=== PATIENT | female | born 1975 ===

== ENCOUNTER 2017-03-03 23:15 | Emergency (ER) | payer SELFPAY ==
[2017-03-03 23:23] VITALS: BP 129/71; PULSE 70; RESP 16; TEMP 98.9; O2SAT 100
--- NOTE | 2017-03-03 23:48 | ED PDOC ---
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 denies: Nausea, Vomiting, Diarrhea, Loss Of Appetite Exacerbating Factors: None Alleviating Factors: None Additional Complaint(s): 42yo female c/o suprapubic pain/pressure ongoing for 3-4 days, denies urinary frequency or dysuria. Denies fever, vaginal discharge or bleeding. States missed her period this month. Past Medical History Reviewed: Historical Data, Nursing Documentation, Vital Signs Vital Signs: Last Vital Signs Temp 98.9 F 03/03/17 23:21 Pulse 70 03/03/17 23:21 Resp 16 03/03/17 23:21 BP 129/71 03/03/17 23:21 Pulse Ox 100 03/03/17 23:48 - Medical History PMH: No Chronic Diseases - Surgical History Surgical History: No Surg Hx - Family History Family History: States: Unknown Family Hx - Living Arrangements Living Arrangements: With Family - Social History Current smoker - smoking cessation education provided: No Alcohol: None - Allergies Allergies/Adverse Reactions: Allergies Allergy/AdvReac Type Severity Reaction Status Date / Time No Known Allergies Allergy Verified 03/03/17 23:28 Review of Systems ROS Statement: Except As Marked, All Systems Reviewed And Found Negative Constitutional: Negative for: Fever, Chills Cardiovascular: Negative for: Chest Pain, Palpitations Respiratory: Negative for: Cough, Shortness of Breath Gastrointestinal: Positive for: Abdominal Pain. Negative for: Nausea, Vomiting Genitourinary Female: Positive for: Pelvic Pain. Negative for: Dysuria, Frequency, Vaginal Discharge, Vaginal Bleeding Musculoskeletal: Positive for: Back Pain. Negative for: Neck Pain Skin: Negative for: Rash Neurological: Negative for: Numbness, Incoordination Psych: Negative for: Anxiety Physical Exam - Reviewed Nursing Documentation Reviewed: Yes Vital Signs Reviewed: Yes - Physical Exam Appears: Positive for: Well, Non-toxic, No Acute Distress Head Exam: Positive for: ATRAUMATIC, NORMAL INSPECTION, NORMOCEPHALIC Skin: Positive for: Normal Color, Warm, DRY Eye Exam: Positive for: EOMI, Normal appearance, PERRL ENT: Positive for: Normal ENT Inspection Neck: Positive for: Painless ROM Cardiovascular/Chest: Negative for: Tachycardia Respiratory: Negative for: Respiratory Distress Gastrointestinal/Abdominal: Positive for: Bowel Sounds, Soft, Tenderness (mild suprapubic tenderness). 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 Negative for: Motor/Sensory Deficits - ECG O2 Sat by Pulse Oximetry: 100 Medical Decision Making Medical Decision Making: check Upreg Disposition - Clinical Impression Clinical Impression: Suprapubic pain - Patient ED Disposition Is Patient to be Admitted: Transfer of Care - Disposition Disposition: Transfer of Care Disposition Time: 23:54 Condition: STABLE Forms: [facility] (Jamaican) Patient Signed Over To: Tad Navarrete Handoff Comments: pending labs, poss need for US
[2017-03-04 00:26] LABS: ALB/GLOB RATIO 1.4 (1.0-2.1); ALKALINE PHOSPHATASE 53 U/L (38-126); ALT/SGPT 38 U/L (9-52); AST/SGOT 23 U/L (14-36); BASO # 0.1 K/uL (0.0-0.2); BASO % 0.8 % (0.0-2.0); BILIRUBIN,TOTAL 0.4 mg/dl (0.2-1.3); BLOOD UREA NITROGEN 9 mg/dl (7-17); CALCIUM 9.4 mg/dL (8.4-10.2); CARBON DIOXIDE 24 mmol/L (22-30); CHLORIDE 107 mmol/L (98-107); EOS # 0.1 K/uL (0.0-0.7); EOS % 1.4 % (0.0-4.0); GFR AFRICAN-AMERICAN > 60; GLUCOSE,RANDOM 125 mg/dL (65-105); HEMATOCRIT 38.9 % (34.0-47.0); MEAN CELL VOLUME 89.1 fl (81.0-99.0); MEAN CORPUSCULAR HEMOGLOBIN 30.4 pg (27.0-31.0); MEAN CORPUSCULAR HGB CONC 34.1 g/dL (33.0-37.0); MONO # 0.6 K/uL (0.0-0.8); MONO % 7.9 % (0.0-10.0); NEUT % 50.9 % (50.0-75.0); NRBC % 0.1 % (0.0-0.0); POTASSIUM 3.7 MMOL/L (3.6-5.0); SODIUM 141 mmol/l (132-148); TOTAL PROTEIN 7.1 G/DL (6.3-8.2); WHITE BLOOD COUNT 7.8 K/uL (4.8-10.8)
[2017-03-04 00:31] LABS: RBC URINE 1 /hpf (0-3); URINE BILIRUBIN NEGATIVE (NEGATIVE); URINE BLOOD NEGATIVE (NEGATIVE); URINE COLOR STRAW (YELLOW); URINE GLUCOSE (UA) NEG (Normal); URINE KETONE NEGATIVE (NEGATIVE); URINE LEUKOCYTE ESTERASE NEG Leu/uL (Negative); URINE PROTEIN NEGATIVE (NEGATIVE); URINE UROBILINOGEN 0.2-1.0 mg/dL (0.2-1.0); WBC URINE 1 /hpf (0-5)
--- NOTE | 2017-03-04 00:42 | ED PDOC ---
- Laboratory Results Result Diagrams: 03/04/17 00:20 03/04/17 00:20 - ECG O2 Sat by Pulse Oximetry: 100 - Progress ED Course And Treament: Case endorsed to magazine writer from Dr. Crain pending labs Pelvic exam performed by magazine writer with Edith milian as child care center assistant director: External exam normal. No discharge, CMT, active bleeding noted. Mild left adnexal tenderness U/S ordered to geeta out ovarian torsion EXAM: US Pelvis Complete, Transabdominal CLINICAL HISTORY: 42 years old, female; Pain; Pelvic pain TECHNIQUE: Real-time transabdominal pelvic ultrasound (complete) with image documentation. COMPARISON: No relevant prior studies available. FINDINGS: Uterus/cervix: Retroverted uterus. Uterus measures 5.6 x 7.8 x 3.8 cm in size. No myometrial mass. Endometrium: 0.9 cm in thickness. Right ovary: 3.1 x 1.9 x 1.7 cm in size. Small follicles. Normal flow. Left ovary: 1.4 x 2.4 x 1.6 cm in size. Small follicles. Normal flow. Free fluid: No significant free fluid. Bladder: Unremarkable as visualized. IMPRESSION: 1. No acute findings. 2. Non-acute findings are described above. EXAM: US Pelvis, Transvaginal CLINICAL HISTORY: 42 years old, female; Pain; Pelvic pain TECHNIQUE: Real-time transvaginal pelvic ultrasound (complete) with image documentation. Transvaginal imaging was used for better evaluation of the endometrium and adnexa. COMPARISON: No relevant prior studies available. FINDINGS: Uterus/cervix: Retroverted uterus. Uterus measures 5.6 x 7.8 x 3.8 cm in size. No myometrial mass. Endometrium: 0.9 cm in thickness. Right ovary: 3.1 x 1.9 x 1.7 cm in size. Small follicles. Normal flow. Left ovary: 1.4 x 2.4 x 1.6 cm in size. Small follicles. Normal flow. Free fluid: No significant free fluid. Bladder: Empty bladder which cannot be evaluated with this probe. IMPRESSION: 1. No acute findings. 2. Non-acute findings are described above. On re-eval, patient states he is feeling better. 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 Return to ED for worsening/concerning symptoms. Disposition - Clinical Impression Clinical Impression: Suprapubic pain - POA Present On Arrival: None - Disposition Referrals: [facility] [Outside] [facility] [Outside[facility] Disposition: Routine/Home Disposition Time: 02:21 Condition: IMPROVED Instructions: Abdominal Pain (ED) Print Language: YORUBA
--- NOTE | 2017-03-04 02:20 | US ---
EXAM: US Pelvis Complete, Transabdominal CLINICAL HISTORY: 42 years old, female; Pain; Pelvic pain TECHNIQUE: Real-time transabdominal pelvic ultrasound (complete) with image documentation. COMPARISON: No relevant prior studies available. FINDINGS: Uterus/cervix: Retroverted uterus. Uterus measures 5.6 x 7.8 x 3.8 cm in size. No myometrial mass. Endometrium: 0.9 cm in thickness. Right ovary: 3.1 x 1.9 x 1.7 cm in size. Small follicles. Normal flow. Left ovary: 1.4 x 2.4 x 1.6 cm in size. Small follicles. Normal flow. Free fluid: No significant free fluid. Bladder: Unremarkable as visualized. IMPRESSION: 1.No acute findings. 2.Non-acute findings are described above. EXAM: US Pelvis, Transvaginal CLINICAL HISTORY: 42 years old, female; Pain; Pelvic pain TECHNIQUE: Real-time transvaginal pelvic ultrasound (complete) with image documentation. Transvaginal imaging was used for better evaluation of the endometrium and adnexa. COMPARISON: No relevant prior studies available. FINDINGS: Uterus/cervix: Retroverted uterus. Uterus measures 5.6 x 7.8 x 3.8 cm in size. No myometrial mass. Endometrium: 0.9 cm in thickness. Right ovary: 3.1 x 1.9 x 1.7 cm in size. Small follicles. Normal flow. Left ovary: 1.4 x 2.4 x 1.6 cm in size. Small follicles. Normal flow. Free fluid: No significant free fluid. Bladder: Empty bladder which cannot be evaluated with this probe.
== END 2017-03-04 02:32 | disposition home or self-care (01) ==
LOC: H.ER 23:15
DX: R10.2 Pelvic and perineal pain (principal); N83.01 Follicular cyst of right ovary; N83.02 Follicular cyst of left ovary

== ENCOUNTER 2018-02-17 18:32 | Emergency (ER) | payer SELFPAY ==
[2018-02-17 18:42] VITALS: RESP 16
--- NOTE | 2018-02-17 19:42 | ED PDOC ---
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 States mild headache associated, nonthunderclap, not maximal in onset. Denies ear pain, fevers, chills, chest pain, shortness of breath. States symptoms are alleviated by lying down flat. Denies abdominal pain or vaginal bleeding. No urinary symptoms. Past Medical History Reviewed: Historical Data, Nursing Documentation, Vital Signs Vital Signs: Last Vital Signs Temp 98.4 F 02/17/18 18:42 Pulse 82 02/17/18 18:42 Resp 16 02/17/18 18:42 BP 132/81 02/17/18 18:42 Pulse Ox 97 02/17/18 18:42 - Medical History PMH: No Chronic Diseases - Family History Family History: States: Unknown Family Hx - Home Medications Home Medications: Ambulatory Orders Medication Instructions Recorded Meclizine [Antivert] 25 mg PO Q6 #30 tab 02/17/18 - Allergies Allergies/Adverse Reactions: Allergies Allergy/AdvReac Type Severity Reaction Status Date / Time No Known Allergies Allergy Verified 02/17/18 18:42 Review of Systems ROS Statement: Except As Marked, All Systems Reviewed And Found Negative Gastrointestinal: Positive for: Nausea, Vomiting Neurological: Positive for: Dizziness Physical Exam - Reviewed Nursing Documentation Reviewed: Yes Vital Signs Reviewed: Yes - Physical Exam Appears: Positive for: Well, Non-toxic, No Acute Distress Head Exam: Positive for: ATRAUMATIC, NORMAL INSPECTION, NORMOCEPHALIC Skin: Positive for: Normal Color, Warm, DRY Eye Exam: Positive for: EOMI, Normal appearance, PERRL ENT: Positive for: Normal ENT Inspection Neck: Positive for: Normal, Painless ROM Cardiovascular/Chest: Positive for: Regular Rate, Rhythm Respiratory: Positive for: CNT, Normal Breath Sounds Gastrointestinal/Abdominal: Positive for: Normal Exam, Soft Back: Positive for: Normal Inspection Extremity: Positive for: Normal ROM Neurologic/Psych: Positive for: Alert, pin chaser II-XII, Oriented, Cerebellar Tests ( normal), Gait (normal). Negative for: Motor/Sensory Deficits, Aphasia, Facial Droop - Laboratory Results Result Diagrams: 02/17/18 19:42 02/17/18 19:42 - ECG O2 Sat by Pulse Oximetry: 97 Pulse Ox Interpretation: Normal Medical Decision Making Medical Decision MakinPM Well appearing F presenting with dizziness and vomiting -well appearing lying in stretcher with normal vitals and nonfocal exam -based on fatiguing symptoms and that they improve with rest, most likely peripheral vertigo, not concerned for central cause -will get labs, give meclizine and zofran and re-eval 1015PM -Dizziness has improved, no longer nauseated -Will give referral to clinic -Return precautions given -Well appearing upon discharge Disposition - Clinical Impression Clinical Impression: Vertigo - Patient ED Disposition Is Patient to be Admitted: No - Disposition Referrals: [facility] [Outside] Disposition: Routine/Home Disposition Time: 22:16 Condition: IMPROVED Prescriptions: Meclizine [Antivert] 25 mg PO Q6 #30 tab Instructions: Vertigo (a Type of Dizziness) Forms: [facility] (Brazilian) Print Language: TRISTANIAN
[2018-02-17 20:31] LABS: HEMOGLOBIN 13.8 g/dL (12.0-16.0); MEAN CELL VOLUME 87.1 fl (81.0-99.0); MEAN CORPUSCULAR HEMOGLOBIN 29.3 pg (27.0-31.0); MEAN CORPUSCULAR HGB CONC 33.7 g/dL (33.0-37.0); RBC 4.71 Mil/uL (3.80-5.20); RED CELL DISTRIBUTION WIDTH 15.2 % (11.5-14.5); WHITE BLOOD COUNT 7.7 K/uL (4.8-10.8)
[2018-02-17 20:50] LABS: SQUAMOUS EPITHIAL 15 /hpf (0-5); URINE BACTERIA OCC (<OCC); URINE BILIRUBIN NEGATIVE (NEGATIVE); URINE BLOOD NEGATIVE (NEGATIVE); URINE CLARITY SLIGHTY-CLOUDY (Clear); URINE COLOR STRAW (YELLOW); URINE GLUCOSE (UA) NEG (Normal); URINE LEUKOCYTE ESTERASE MOD Leu/uL (Negative); URINE PROTEIN NEGATIVE (NEGATIVE); URINE UROBILINOGEN 0.2-1.0 mg/dL (0.2-1.0)
[2018-02-17 20:52] LABS: BLOOD UREA NITROGEN 10 mg/dl (7-17); CALCIUM 9.5 mg/dL (8.4-10.2); GFR AFRICAN-AMERICAN > 60; GFR NON-AFRICAN AMERICAN > 60
[2018-02-17 22:36] VITALS: BP 129/53; PULSE 76; TEMP 98.7; O2SAT 100
== END 2018-02-17 22:33 | disposition home or self-care (01) ==
LOC: H.ER 18:32
DX: R10.9 Unspecified abdominal pain (principal); R42 Dizziness and giddiness
CPT/HCPCS: 80048; 81003; 81025; 85027; 96374; 99284; J2405

== ENCOUNTER 2018-04-11 17:10 | Emergency (ER) | payer SELFPAY ==
[2018-04-11 17:36] VITALS: BP 116/72; PULSE 75; RESP 20; TEMP 98.4; O2SAT 98
--- NOTE | 2018-04-11 18:05 | ED PDOC ---
HPI: Female Pain Time Seen by Provider: 04/11/18 17:40 Chief Complaint (Nursing): Female Genitourinary Chief Complaint (Provider): Female Genitourinary History/Exam Limitations: no limitations Onset/Duration Of Symptoms: Days (x2 days ago) Current Symptoms Are (Timing): Still Present Associated Symptoms: denies: Nausea, Vomiting, Back Pain Additional Complaint(s): Estrella Saucedo is a 43 year old female with no past medical history, who presents to the emergency department complaining of urinary frequency and dysuria, onset x2 days ago. Patient denies having fever, chills, hematuria, back pain, nausea or vomiting. PMD: [facility] Past Medical History Reviewed: Historical Data, Nursing Documentation, Vital Signs Vital Signs: Last Vital Signs Temp 98.4 F 04/11/18 17:35 Pulse 75 04/11/18 17:35 Resp 20 04/11/18 17:35 BP 116/72 04/11/18 17:35 Pulse Ox 98 04/11/18 17:35 - Medical History PMH: No Chronic Diseases - Surgical History Surgical History: No Surg Hx - Family History Family History: States: Unknown Family Hx - Home Medications Home Medications: Ambulatory Orders Medication Instructions Recorded Meclizine [Antivert] 25 mg PO Q6 #30 tab 02/17/18 Phenazopyridine HCl [Pyridium] 200 mg PO BID PRN #6 tablet 04/11/18 Sulfamethoxazole/Trimethoprim 1 tab PO BID #6 tab 04/11/18 [Bactrim DS 800 mg-160 mg] - Allergies Allergies/Adverse Reactions: Allergies Allergy/AdvReac Type Severity Reaction Status Date / Time No Known Allergies Allergy Verified 04/11/18 17:29 Review of Systems ROS Statement: Except As Marked, All Systems Reviewed And Found Negative Constitutional: Negative for: Fever, Chills Gastrointestinal: Negative for: Nausea, Vomiting Genitourinary Female: Positive for: Dysuria, Frequency. Negative for: Hematuria Musculoskeletal: Negative for: Back Pain Physical Exam - Reviewed Nursing Documentation Reviewed: Yes Vital Signs Reviewed: Yes - Physical Exam Appears: Positive for: Well Head Exam: Positive for: NORMOCEPHALIC Skin: Positive for: Normal Color, Warm, Dry Eye Exam: Positive for: Normal appearance, EOMI, PERRL ENT: Positive for: Normal ENT Inspection Neck: Positive for: Normal, Painless ROM, Supple Cardiovascular/Chest: Positive for: Regular Rate, Rhythm Respiratory: Positive for: Normal Breath Sounds. Negative for: Respiratory Distress Gastrointestinal/Abdominal: Positive for: Normal Exam, Bowel Sounds, Soft. Negative for: Tenderness Pelvic Exam: Positive for: External Exam Normal, Speculum Exam Normal, Bimanual Exam Normal, No Cerv. Motion Tender, Discharge (MINIMAL DISCHARGE). Negative for: Active Bleeding Back: Positive for: Normal Inspection. Negative for: L CVA Tenderness, R CVA Tenderness Extremity: Positive for: Normal ROM. Negative for: Tenderness, Deformity, Swelling Neurologic/Psych: Positive for: Alert, Oriented (x3) - Laboratory Results Urine POC: Negative Urine dip results: Positive for: Leukocyte Esterase. Negative for: Nitrate, Ketones - ECG O2 Sat by Pulse Oximetry: 98 (RA) Pulse Ox Interpretation: Normal - Progress ED Course And Treament: gc SENT Medical Decision Making Medical Decision Making: Initial Time: 17:55 Initial Plan: --Chlamydia/GC RNA, TMA Scribe Attestation: Documented by Barron Mayer, acting as a scribe for Sammy Saeed PA-C Provider Scribe Attestation: All medical record entries made by the Scribe were at my direction and personally dictated by me. I have reviewed the chart and agree that the record accurately reflects my personal performance of the history, physical exam, medical decision making, and the department course for this patient. I have also personally directed, reviewed, and agree with the discharge instructions and disposition. Disposition - Clinical Impression Clinical Impression: Urinary tract infection - Patient ED Disposition Is Patient to be Admitted: No - Disposition [facility]errals[facility] [[facility]] Disposition: Routine/Home Disposition Time: 18:20 Condition: FAIR Prescriptions: Phenazopyridine HCl [Pyridium] 200 mg PO BID PRN #6 tablet PRN Reason: Urinary Discomt Sulfamethoxazole/Trimethoprim [Bactrim DS 800 mg-160 mg] 1 tab PO BID #6 tab Instructions: Urinary Tract Infections in Adults Print Language: ARABIC
[2018-04-11 19:08] LABS: SQUAMOUS EPITHIAL 6 /hpf (0-5); URINE BACTERIA RARE (<OCC); URINE BILIRUBIN NEGATIVE (NEGATIVE); URINE BLOOD NEGATIVE (NEGATIVE); URINE CLARITY CLOUDY (Clear); URINE COLOR YELLOW (YELLOW); URINE GLUCOSE (UA) NEG (Normal); URINE LEUKOCYTE ESTERASE MOD Leu/uL (Negative); URINE PROTEIN NEGATIVE (NEGATIVE)
== END 2018-04-11 18:31 | disposition home or self-care (01) ==
LOC: H.ER 17:10
DX: N39.0 Urinary tract infection, site not specified (principal)

== ENCOUNTER 2018-04-13 09:03 | Emergency (ER) | payer SELFPAY ==
[2018-04-13 09:16] VITALS: BMI 28.2
[2018-04-13 10:10] LABS: SQUAMOUS EPITHIAL 4 /hpf (0-5); URINE BACTERIA MOD (<OCC); URINE BILIRUBIN NEGATIVE (NEGATIVE); URINE BLOOD NEGATIVE (NEGATIVE); URINE CLARITY SLIGHTY-CLOUDY (Clear); URINE COLOR YELLOW (YELLOW); URINE GLUCOSE (UA) NEG (Normal); URINE LEUKOCYTE ESTERASE SMALL Leu/uL (Negative); URINE PROTEIN NEGATIVE (NEGATIVE); URINE UROBILINOGEN 0.2-1.0 mg/dL (0.2-1.0)
--- NOTE | 2018-04-13 12:26 | US ---
Date of service: 04/13/2018 HISTORY: Pelvic pain. LMP 04/01/2018. Regular cycle history. COMPARISON: 09/17/2017 and 11/03/2017 serial pelvic ultrasounds. TECHNIQUE: Transabdominal, transvaginal. Real -time technique with 2D, duplex and color Doppler. FINDINGS: UTERUS: Measures 4.3 x 5 x 8.5 cm. Normal in size and appearance. No fibroid or other mass lesion seen. ENDOMETRIUM: Measures 9.7 mm in diameter. Trace fluid within the endometrial echo complex. Similar findings identified previously. No ultrasound findings to suggest gestational sac, mass or polyp or other pathologic process within the endometrium. CERVIX: No cervical abnormality identified. RIGHT OVARY: Measures 1.6 x 2.4 x 3.1 cm. No solid mass. Normal flow. Multiple subcentimeter follicles. LEFT OVARY: Measures 1.6 x 2.9 x 3.4 cm. No solid mass. Normal flow. Multiple subcentimeter follicles. FREE FLUID: No significant free fluid noted. OTHER FINDINGS: None. IMPRESSION: Persistent trace fluid in the endometrial canal. Otherwise unremarkable study without appreciable interval change.
[2018-04-13 13:13] VITALS: BP 119/74; PULSE 83; RESP 17; TEMP 98.1; O2SAT 100
--- NOTE | 2018-04-13 14:45 | ED PDOC ---
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 denies: Fever, Chills, Nausea, Diarrhea Alleviating Factors: None Additional Complaint(s): 43yo female c/o dysuria and pelvic cramping radiating to the back denies fever, flank pain, vaginal pain or weakness. Seen here 2 days ago started on bactrim and pyridium but dont believe taking correctly as urine sample today not orange and patient admits didnt take medications correctly. Past Medical History Vital Signs: Last Vital Signs Temp 98.1 F 04/13/18 13:12 Pulse 83 04/13/18 13:12 Resp 17 04/13/18 13:12 BP 119/74 04/13/18 13:12 Pulse Ox 100 04/13/18 13:12 - Family History Family History: States: Unknown Family Hx - Home Medications Home Medications: Ambulatory Orders Medication Instructions Recorded Meclizine [Antivert] 25 mg PO Q6 #30 tab 02/17/18 Phenazopyridine HCl [Pyridium] 200 mg PO BID PRN #6 tablet 04/11/18 Sulfamethoxazole/Trimethoprim 1 tab PO BID #6 tab 04/11/18 [Bactrim DS 800 mg-160 mg] Naproxen [Naprosyn] 500 mg PO BID PRN #14 tablet 04/13/18 - Allergies Allergies/Adverse Reactions: Allergies Allergy/AdvReac Type Severity Reaction Status Date / Time No Known Allergies Allergy Verified 04/11/18 17:29 - ECG O2 Sat by Pulse Oximetry: 100 Disposition - Clinical Impression Clinical Impression: Genitourinary Pain, Urinary tract infection - Disposition [facility]errals[facility] [[facility]] Condition: STABLE Additional Instructions: Take all medications as directed. You will be called in 1-3 days if results of culture or STD tests are positive or you need your antibiotic changed. Continue medications as directed. Prescriptions: Naproxen [Naprosyn] 500 mg PO BID PRN #14 tablet PRN Reason: Pain, Moderate (4-7) Instructions: Urinary Tract Infections in Adults Forms: [facility] (Croatian) Print Language: SYRIAC
== END 2018-04-13 13:13 | disposition home or self-care (01) ==
LOC: H.ER 09:03
DX: N39.0 Urinary tract infection, site not specified (principal)

== ENCOUNTER 2018-04-19 08:33 | Emergency (ER) | payer SELFPAY ==
[2018-04-19 08:34] VITALS: BMI 28.2
[2018-04-19 08:38] VITALS: BP 126/78; PULSE 80; RESP 18; TEMP 98.4; O2SAT 98
[2018-04-19] MEDS ORDERED: Naproxen 500 MG TAB PO STA (09:16)
[2018-04-19] MEDS ORDERED: Naproxen 500 MG TAB PO ONE (09:27)
--- NOTE | 2018-04-19 09:47 | ED PDOC ---
HPI: Female Pain Time Seen by Provider: 04/19/18 09:00 Chief Complaint (Nursing): Female Genitourinary Chief Complaint (Provider): Female Genitourinary History Per: Getterer ([id number]) History/Exam Limitations: language barrier Onset/Duration Of Symptoms: Intermittent Episodes Current Symptoms Are (Timing): Still Present Quality Of Discomfort: Sharp Associated Symptoms: denies: Fever, Nausea, Vomiting, Diarrhea Additional Complaint(s): Estrella Saucedo is a 43 year old female with a past medical history of urinary tract infections, who presents to the emergency department for the 3rd time in a week complaining of sharp pain while urinating, and suprapubic pain. Patient was seen on the for similar symptoms that resolved initially but came back on the . Patient was then given naproxen which improved symptoms but pain reoccurred last night. She states she made an appointment to see her PMD but has not yet been able to see him. Patient has finished her 3 day course of antibiotics and naproxen. She denies having any hematuria, nausea, vomiting, diarrhea, fever, flank pain, vaginal pain, pain with sex, vaginal bleeding or discharge and states that her last menstrual period was x3 weeks ago. Patient further reports that prior to the last two episodes she has only had a couple UTIs in her life. PMD: No Provider G/P/A: Past Medical History Reviewed: Historical Data, Nursing Documentation, Vital Signs Vital Signs: Last Vital Signs Temp 98.4 F 04/19/18 08:37 Pulse 80 04/19/18 08:37 Resp 18 04/19/18 08:37 BP 126/78 04/19/18 08:37 Pulse Ox 98 04/19/18 08:37 - Medical History Other PMH: Urinary tract Infections - Surgical History Surgical History: No Surg Hx - Family History Family History: States: Unknown Family Hx - Home Medications Home Medications: Ambulatory Orders Medication Instructions Recorded Meclizine [Antivert] 25 mg PO Q6 #30 tab 02/17/18 Phenazopyridine HCl [Pyridium] 200 mg PO BID PRN #6 tablet 04/11/18 Sulfamethoxazole/Trimethoprim 1 tab PO BID #6 tab 04/11/18 [Bactrim DS 800 mg-160 mg] Naproxen [Naprosyn] 500 mg PO BID PRN #14 tablet 04/13/18 Naproxen 500 mg PO BID #10 tab 04/19/18 Nitrofurantoin Macrocrystals 100 mg PO BID #6 cap 04/19/18 [Macrobid] - Allergies Allergies/Adverse Reactions: Allergies Allergy/AdvReac Type Severity Reaction Status Date / Time No Known Allergies Allergy Verified 04/19/18 08:56 Review of Systems ROS Statement: Except As Marked, All Systems Reviewed And Found Negative Constitutional: Negative for: Fever Gastrointestinal: Negative for: Nausea, Vomiting, Diarrhea Genitourinary Female: Positive for: Other (sharp suprapubic pain following ur ination). Negative for: Hematuria, Vaginal Discharge Musculoskeletal: Negative for: Other (flank pain) Physical Exam - Reviewed Nursing Documentation Reviewed: Yes Vital Signs Reviewed: Yes - Physical Exam Appears: Positive for: Well, No Acute Distress Head Exam: Positive for: ATRAUMATIC Skin: Positive for: Normal Color, Warm, Dry Eye Exam: Positive for: Normal appearance, EOMI, PERRL Neck: Positive for: Normal, Painless ROM, Supple Cardiovascular/Chest: Positive for: Regular Rate, Rhythm. Negative for: Murmur Respiratory: Positive for: Normal Breath Sounds. Negative for: Respiratory Distress Gastrointestinal/Abdominal: Positive for: Normal Exam, Soft, Tenderness (mild suprapubic tenderness ) Pelvic Exam: Positive for: Other (deferred ) Extremity: Positive for: Normal ROM. Negative for: Tenderness, Deformity, Swelling Neurologic/Psych: Positive for: Alert, Oriented (x3). Negative for: Motor/Sensory Deficits - ECG O2 Sat by Pulse Oximetry: 98 (RA) Pulse Ox Interpretation: Normal Medical Decision Making Medical Decision Making: Time: 09:16 A/P: Patient has a recurring urinary tract infection vs. other bladder pathology. Provider discussed proper hygiene, bladder irritants in food, and the importance of a specialty follow up. Provider will follow up with urine Culture today and will be given Naproxen 500 mg PO Q12 for pain. Plan: --Naproxen 500 mg PO q12 --Urine culture --Urinalysis --tranvaginal/Urinary bladder US Time:12:18 Transvaginal US FINDINGS: UTERUS: Measures 4.2 x 5.5 x 7.8 cm. Normal in size and appearance. No fibroid or other mass lesion seen. ENDOMETRIUM: Measures 6.5 mm in diameter. No ultrasound findings to suggest gestational sac, fluid, debris, mass or polyp or other pathologic process within the endometrium. CERVIX: No cervical abnormality identified. RIGHT OVARY: Measures 1.6 x 2.1 x 2.4 cm. No solid mass. Normal flow. Multiple subcentimeter follicles. LEFT OVARY: Measures 2 x 2.2 x 2.5 cm. No solid mass. Normal flow. Complex likely hemorrhagic cyst 0.9 x 1.3 cm. FREE FLUID: No significant free fluid noted. OTHER FINDINGS: None. IMPRESSION: Unremarkable uterus. Trace fluid identified in the endometrial canal on the prior study is no longer seen. Complex, likely hemorrhagic cyst identified left adnexa, a new finding. Time: 12:20 Bladder Ultrasound FINDINGS: Unremarkable without wall thickening or intraluminal debris. No calculus or gross mass lesion. No free fluid in pelvis. Prevoid Volume: 335.65 cc. Post void residual: 45.81 cc. Bilateral ureteral jets documented. IMPRESSION: Normal capacitance bladder. Neither focal nor diffuse bladder wall abnormalities Postvoid residual 45.8 mL. Bilateral ureteral jets identified. Time: 12:52 Provider found pelvic ultrasound to be remarkable Labs revealed urine with leukocyte esterase, however improving from previous two visits. Provider will give patient ERx for macrobid. Patient has been instructed to follow up with urology and has been given naproxen for pain. Provider discussed return parameters with patient. Scribe Attestation: Documented by Barron Mayer, acting as a scribe for Michelle Reeves MD. Provider Scribe Attestation: All medical record entries made by the Scribe were at my direction and personally dictated by me. I have reviewed the chart and agree that the record accurately reflects my personal performance of the history, physical exam, medical decision making, and the department course for this patient. I have also personally directed, reviewed, and agree with the discharge instructions and disposition. Disposition - Clinical Impression Clinical Impression: Female genitourinary symptoms, Urinary tract infection - Disposition Disposition: Routine/Home Disposition Time: 13:18 Condition: IMPROVED Additional Instructions: Follow up with primary doctor and urologist. Take medications as prescribed. Avoid spicy foods, caffeine, alcohol, and citrus juices as they irritate the bladder. Drink plenty of water and cranberry juice while symptoms last. Prescriptions: Naproxen 500 mg PO BID #10 tab Nitrofurantoin Macrocrystals [Macrobid] 100 mg PO BID #6 cap Forms: [employer] (Divehi) Print Language: CZECH
[2018-04-19 10:03] LABS: SQUAMOUS EPITHIAL 5 /hpf (0-5); URINE BACTERIA RARE (<OCC); URINE BILIRUBIN NEGATIVE (NEGATIVE); URINE BLOOD NEGATIVE (NEGATIVE); URINE CLARITY SLIGHTY-CLOUDY (Clear); URINE COLOR YELLOW (YELLOW); URINE GLUCOSE (UA) NEG (Normal); URINE LEUKOCYTE ESTERASE TRACE Leu/uL (Negative); URINE PROTEIN NEGATIVE (NEGATIVE)
--- NOTE | 2018-04-19 12:22 | US ---
Date of service: 04/19/2018 HISTORY: Lower abdominal pain. LMP 04/01/2018. COMPARISON: 04/13/2018. Pelvic ultrasound TECHNIQUE: Transabdominal, transvaginal. Real -time technique with 2D, duplex and color Doppler. FINDINGS: UTERUS: Measures 4.2 x 5.5 x 7.8 cm. Normal in size and appearance. No fibroid or other mass lesion seen. ENDOMETRIUM: Measures 6.5 mm in diameter. No ultrasound findings to suggest gestational sac, fluid, debris, mass or polyp or other pathologic process within the endometrium. CERVIX: No cervical abnormality identified. RIGHT OVARY: Measures 1.6 x 2.1 x 2.4 cm. No solid mass. Normal flow. Multiple subcentimeter follicles. LEFT OVARY: Measures 2 x 2.2 x 2.5 cm. No solid mass. Normal flow. Complex likely hemorrhagic cyst 0.9 x 1.3 cm. FREE FLUID: No significant free fluid noted. OTHER FINDINGS: None. IMPRESSION: Unremarkable uterus. Trace fluid identified in the endometrial canal on the prior study is no longer seen. Complex, likely hemorrhagic cyst identified left adnexa, a new finding.
--- NOTE | 2018-04-19 12:24 | US ---
Date of service: 04/19/2018 PROCEDURE: Ultrasound of the Bladder HISTORY: lower abdominal pain COMPARISON: None available. TECHNIQUE: Sonographic evaluation of the bladder was performed. FINDINGS: Unremarkable without wall thickening or intraluminal debris. No calculus or gross mass lesion. No free fluid in pelvis. Prevoid Volume: 335.65 cc. Post void residual: 45.81 cc. Bilateral ureteral jets documented. IMPRESSION: Normal capacitance bladder. Neither focal nor diffuse bladder wall abnormalities Postvoid residual 45.8 mL. Bilateral ureteral jets identified.
== END 2018-04-19 13:21 | disposition home or self-care (01) ==
LOC: H.ER 08:33
DX: N39.0 Urinary tract infection, site not specified (principal)

== ENCOUNTER 2018-05-25 06:14 | Emergency (ER) | payer SELFPAY ==
[2018-05-25 06:14] VITALS: BMI 28.2
[2018-05-25 06:30] VITALS: RESP 16; O2SAT 98
--- NOTE | 2018-05-25 07:30 | ED PDOC ---
HPI: CCC, URI, Sore Throat Time Seen by Provider: 05/25/18 07:08 Chief Complaint (Nursing): Cough, Cold, Congestion Chief Complaint (Provider): cough, sore throat History Per: Patient History/Exam Limitations: no limitations Onset/Duration Of Symptoms: Days (x2) Current Symptoms Are (Timing): Still Present Location Of Pain: Throat Associated Symptoms: Sore Throat, Cough. denies: Fever, Chills Additional Complaint(s): Estrella Saucedo is a 43 year old female, with no significant past medical history, who presents to the emergency department complaining of sore throat associated with cough and a mild runny nose onset for x2 days. Patient is also complaining of body aches that has been ongoing for a week. Patient states cough is worst at night and has difficulty swallowing due to pain. She took Ibuprofen at 22:00 yesterday with mild relief. She denies any fever, chills, chest pain, shortness of breath, nausea, vomit, diarrhea, abdominal pain, headache, dizziness, weakness, numbness or tingling. No further medical complaints. PMD: Xander Boucher Past Medical History Reviewed: Historical Data, Nursing Documentation, Vital Signs Vital Signs: Last Vital Signs Temp 98.3 F 05/25/18 06:26 Pulse 81 05/25/18 06:26 Resp 16 05/25/18 06:26 BP 122/80 05/25/18 06:26 Pulse Ox 98 05/25/18 06:26 - Medical History PMH: No Chronic Diseases - Surgical History Surgical History: No Surg Hx - Family History Family History: States: Unknown Family Hx - Social History Current smoker - smoking cessation education provided: No Alcohol: None Drugs: Denies - Home Medications Home Medications: Ambulatory Orders Medication Instructions Recorded Meclizine [Antivert] 25 mg PO Q6 #30 tab 02/17/18 Phenazopyridine HCl [Pyridium] 200 mg PO BID PRN #6 tablet 04/11/18 Sulfamethoxazole/Trimethoprim 1 tab PO BID #6 tab 04/11/18 [Bactrim DS 800 mg-160 mg] Naproxen [Naprosyn] 500 mg PO BID PRN #14 tablet 04/13/18 Naproxen 500 mg PO BID #10 tab 04/19/18 Nitrofurantoin Macrocrystals 100 mg PO BID #6 cap 04/19/18 [Macrobid] Benzonatate [Tessalon Perles] 100 mg PO BID PRN 5 Days sgl 05/25/18 Ibuprofen [Motrin] 600 mg PO TID 7 Days tab 05/25/18 - Allergies Allergies/Adverse Reactions: Allergies Allergy/AdvReac Type Severity Reaction Status Date / Time No Known Allergies Allergy Verified 05/25/18 06:30 Review of Systems ROS Statement: Except As Marked, All Systems Reviewed And Found Negative Constitutional: Positive for: Other (body aches). Negative for: Fever, Chills ENT: Positive for: Nose Discharge (mild runny nose), Nose Congestion, Throat Pain Cardiovascular: Negative for: Chest Pain Respiratory: Positive for: Cough. Negative for: Shortness of Breath Gastrointestinal: Negative for: Nausea, Vomiting, Abdominal Pain, Diarrhea Genitourinary Female: Negative for: Dysuria, Frequency, Incontinence Neurological: Negative for: Weakness, Numbness, Headache, Dizziness Physical Exam - Reviewed Nursing Documentation Reviewed: Yes Vital Signs Reviewed: Yes - Physical Exam Appears: Positive for: No Acute Distress Head Exam: Positive for: ATRAUMATIC, NORMAL INSPECTION, NORMOCEPHALIC Skin: Positive for: Normal Color, Warm, Dry Eye Exam: Positive for: Normal appearance, EOMI, PERRL ENT: Positive for: Normal ENT Inspection. Negative for: Pharyngeal Erythema, Tonsillar Exudate, Tonsillar Swelling Neck: Positive for: Normal, Painless ROM, Supple Cardiovascular/Chest: Positive for: Regular Rate, Rhythm. Negative for: Murmur Respiratory: Positive for: Normal Breath Sounds. Negative for: Respiratory Distress Gastrointestinal/Abdominal: Positive for: Normal Exam, Soft. Negative for: Tenderness Back: Positive for: Normal Inspection. Negative for: L CVA Tenderness, R CVA Tenderness, Vertebral Tenderness Extremity: Positive for: Normal ROM (upper and lower extremities). Negative for: Deformity, Swelling Neurologic/Psych: Positive for: Alert, Oriented - Laboratory Results Interpretation Of Abn Labs: no acute - ECG O2 Sat by Pulse Oximetry: 98 (RA) Pulse Ox Interpretation: Normal - Progress ED Course And Treament: 934: Stable. AAOx3. Pain free. Tolerated PO. Fu with pcp. Medical Decision Making Medical Decision Making: Time: 07:08 Initial impression: URI Initial Plan: --Urine --Toradol 15 mg IM --Influenza A B --Rapid Strep Group A Antigen --Reevaluation ----- Scribe Attestation: Documented by Chriss Lopez, acting as a scribe for Fazal Batres MD. Provider Scribe Attestation: All medical record entries made by the Scribe were at my direction and personally dictated by me. I have reviewed the chart and agree that the record accurately reflects my personal performance of the history, physical exam, medical decision making, and the department course for this patient. I have also personally directed, reviewed, and agree with the discharge instructions and disposition. Disposition - Clinical Impression Clinical Impression: URI (upper respiratory infection) - Patient ED Disposition Is Patient to be Admitted: No Counseled Patient/Family Regarding: Studies Performed, Diagnosis, Need For Followup, Rx Given - Disposition Referrals: [facility] [Outside] - 05/26/18 Disposition: Routine/Home Disposition Time: 09:34 Condition: STABLE Additional Instructions: Return if not better in 3 days. Prescriptions: Benzonatate [Tessalon Perles] 100 mg PO BID PRN 5 Days sgl PRN Reason: Cough Ibuprofen [Motrin] 600 mg PO TID 7 Days tab Instructions: Viral Upper Respiratory Infection, Adult (DC) Print Language: SOUTH KOREAN
[2018-05-25 09:59] VITALS: BP 121/76; PULSE 74; TEMP 98.1
== END 2018-05-25 09:59 | disposition home or self-care (01) ==
LOC: H.ER 06:14
DX: J06.9 Acute upper respiratory infection, unspecified (principal)
CPT/HCPCS: 81025; 87070; 87430; 87804; 96372; 99283; J1885

== ENCOUNTER 2018-08-28 11:32 | Emergency (ER) | payer SELFPAY ==
[2018-08-28 11:33] VITALS: BMI 28.2
[2018-08-28 12:12] VITALS: BP 119/80; PULSE 68; RESP 18; TEMP 98.1; O2SAT 100
[2018-08-28] MEDS ORDERED: Naproxen 500 MG TAB PO ONE (12:34)
--- NOTE | 2018-08-28 12:38 | ED PDOC ---
HPI: Female Pain Time Seen by Provider: 08/28/18 12:16 Chief Complaint (Nursing): Abdominal Pain Chief Complaint (Provider): Abdominal Pain History Per: Patient, Certified Nurse ([id number]) History/Exam Limitations: no limitations Onset/Duration Of Symptoms: Days (x2 days) Current Symptoms Are (Timing): Still Present Additional Complaint(s): Feroz Contreras is a 43 year old female with no significant past medical history, who presents to the emergency department complaining of suprapubic pain and urinary hesitancy for the past x2 days. She states she has m ild hematuria but only after wiping. Patient's last menstrual period was on July 20. She states she has not done a home test. Patient denies having any fever, chills, back pain, flank pain, nausea, vomiting, diarrhea, vaginal discharge, vaginal bleeding, incontinence or antipyretic use. PMD: no provider Past Medical History Vital Signs: Last Vital Signs Temp 98.1 F 08/28/18 12:08 Pulse 68 08/28/18 12:08 Resp 18 08/28/18 12:08 BP 119/80 08/28/18 12:08 Pulse Ox 100 08/28/18 12:08 - Family History Family History: States: Unknown Family Hx - Home Medications Home Medications: Ambulatory Orders Medication Instructions Recorded Meclizine [Antivert] 25 mg PO Q6 #30 tab 02/17/18 Phenazopyridine HCl [Pyridium] 200 mg PO BID PRN #6 tablet 04/11/18 Sulfamethoxazole/Trimethoprim 1 tab PO BID #6 tab 04/11/18 [Bactrim DS 800 mg-160 mg] Naproxen [Naprosyn] 500 mg PO BID PRN #14 tablet 04/13/18 Nitrofurantoin Macrocrystals 100 mg PO BID #6 cap 04/19/18 [Macrobid] RX: Naproxen 500 mg PO BID #10 tab 04/19/18 Benzonatate [Tessalon Perles] 100 mg PO BID PRN 5 Days sgl 05/25/18 Ibuprofen [Motrin] 600 mg PO TID 7 Days tab 05/25/18 Nitrofurantoin Macrocrystals 100 mg PO BID #14 cap 08/28/18 [Macrobid] Phenazopyridine [Pyridium] 200 mg PO BID #6 tab 08/28/18 - Allergies Allergies/Adverse Reactions: Allergies Allergy/AdvReac Type Severity Reaction Status Date / Time No Known Allergies Allergy Verified 05/25/18 06:30 Review of Systems ROS Statement: Except As Marked, All Systems Reviewed And Found Negative Constitutional: Negative for: Fever, Chills Gastrointestinal: Positive for: Abdominal Pain. Negative for: Nausea, Vomiting, Diarrhea Genitourinary Female: Positive for: Hematuria, Other (urinary hesitancy). Negative for: Incontinence, Vaginal Discharge, Vaginal Bleeding Musculoskeletal: Negative for: Back Pain (flank pain) Physical Exam - Reviewed Nursing Documentation Reviewed: Yes Vital Signs Reviewed: Yes - Physical Exam Appears: Positive for: Non-toxic, No Acute Distress Head Exam: Positive for: ATRAUMATIC, NORMOCEPHALIC Cardiovascular/Chest: Positive for: Regular Rate, Rhythm. Negative for: Murmur Respiratory: Positive for: Normal Breath Sounds. Negative for: Respiratory Distress Gastrointestinal/Abdominal: Positive for: Normal Exam, Soft. Negative for: Tenderness (including pelvis) Back: Positive for: Normal Inspection. Negative for: L CVA Tenderness, R CVA Tenderness, Vertebral Tenderness - Laboratory Results Urine POC: Negative Urine dip results: Positive for: Leukocyte Esterase (trace). Negative for: Blood, Nitrate, Ketones, Glucose, Bilirubin, Protein - ECG O2 Sat by Pulse Oximetry: 100 (RA) Pulse Ox Interpretation: Normal - Progress ED Course And Treament: --Urine dipstick shows UTI, urine culture sent and patient was informed of results. --Advised patient to follow up with PMD or [employer] and was also informed of side effects of Pyridium using heating unit installer number [id number] --Told to return if symptoms worsen. Medical Decision Making Medical Decision Making: Time: 1224 Plan: --Naproxen 500 mg PO --Macrobid 100 mg PO --Urine culture Scribe Attestation: Documented by Barron Carlos Leyla, acting as a scribe for Julio Holt. Provider Scribe Attestation: All medical record entries made by the Scribe were at my direction and personally dictated by me. I have reviewed the chart and agree that the record accurately reflects my personal performance of the history, physical exam, medical decision making, and the department course for this patient. I have also personally directed, reviewed, and agree with the discharge instructions and disposition. Disposition - Clinical Impression Clinical Impression: UTI (urinary tract infection) - Patient ED Disposition Is Patient to be Admitted: No - Disposition Referrals: [facility] [Outside] Disposition: Routine/Home Disposition Time: 12:35 Condition: IMPROVED Additional Instructions: FOLLOW UP WITH [facility] FOR FURTHER EVALUATION RETURN TO ED IMMEDIATELY IF SYMPTOMS WORSEN FEROZ CONTRERAS, thank you for letting us take care of you today. Your provider was Vega Arvizu MD and you were treated for LOWER ABD PAIN. The emergency medical care you received today was directed at your acute symptoms. If you were prescribed any medication, please fill it and take as directed. It may take several days for your symptoms to resolve. Return to the Emergency Department if your symptoms worsen, do not improve, or if you have any other problems. Please contact your doctor or call one of the physicians/clinics you have been referred to that are listed on the Patient Visit Information form that is included in your discharge packet. Bring any paperwork you were given at discharge with you along with any medications you are taking to your follow up visit. Our treatment cannot replace ongoing medical care by a primary care provider outside of the emergency department. Thank you for allowing the [facility] [address] beds at the [facility] team to be part of your care today. If you had an X-Ray or CT scan: A Radiologist will review the ED reading if any change in treatment is needed we will contact you. If you had a blood, urine, or wound culture: It will take several days for the results, if any change in treatment is needed we will contact you. If you had an STI test: It will take 48 hours for the results. Please call after 1 week if you have not heard back. Prescriptions: Nitrofurantoin Macrocrystals [Macrobid] 100 mg PO BID #14 cap Phenazopyridine [Pyridium] 200 mg PO BID #6 tab Instructions: Urinary Tract Infection, Adult (DC) Forms: [employer] (Gambian) Print Language: PASHT[place]
== END 2018-08-28 12:57 | disposition home or self-care (01) ==
LOC: H.ER 11:32
DX: N39.0 Urinary tract infection, site not specified (principal)